=== PATIENT | male | born 1980 | race Two or more races ===

== ENCOUNTER 2021-01-21 14:57 | Emergency (ER) | payer BC ==
[2021-01-21 15:25] LABS: MUDS CUTOFF CONCENTRATIONS CUTOFF CONC BELOW:
[2021-01-21 15:32] LABS: GLUCOSE, URINE (UA) NEGATIVE (NEGATIVE); KETONES,URINE (UA) TRACE mg/dL (NEGATIVE); LEUKOCYTE ESTERASE, URINE NEGATIVE (NEGATIVE); NITRITE,URINE NEGATIVE (NEGATIVE); OCCULT BLOOD,URINE NEGATIVE (NEGATIVE); PROTEIN,URINE NEGATIVE (NEGATIVE); UROBILINOGEN,URINE 0.2 (NORMAL) E.U./dL (NORMAL)
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
[2021-01-21 15:33] LABS: BILIRUBIN,URINE NEGATIVE (NEGATIVE); CLARITY,URINE CLEAR (CLEAR); ICTOTEST,URINE NEGATIVE
[2021-01-21 15:39] LABS: AMPHETAMINE SCREEN,URINE POSITIVE (NEGATIVE); BARBITURATE SCREEN,UR NEGATIVE (NEGATIVE); BENZODIAZEPINES SCREEN, URINE POSITIVE (NEGATIVE); COCAINE SCREEN URINE NEGATIVE (NEGATIVE); METHADONE SCREEN, URINE NEGATIVE (NEGATIVE); METHAMPHETAMINES SCREEN, URINE NEGATIVE (NEGATIVE); OPIATE SCREEN, URINE NEGATIVE (NEGATIVE); OXYCODONE SCREEN, URINE NEGATIVE (NEGATIVE); PROPOXYPHENE SCREEN, URINE NEGATIVE (NEGATIVE); THC CANNABINOID SCREEN, URINE POSITIVE (NEGATIVE); TRICYCLIC ANTIDEPRESSANT,URINE NEGATIVE (NEGATIVE)
[2021-01-21 15:46] LABS: BASOPHILS % (AUTO) 0.5 %; EOSINOPHILS # (AUTO) 0.2 10^3/uL (0.0-0.7); EOSINOPHILS % (AUTO) 2.8 %; HCT - HEMATOCRIT 42.5 % (42.0-52.0); HGB - HEMOGLOBIN 14.2 g/dL (14.0-18.0); LYMPHOCYTES # (AUTO) 2.4 10^3/uL (1.5-3.5); LYMPHOCYTES % (AUTO) 41.7 %; MEAN CORPUSCULAR HEMOGLOBIN 30.3 pg (27.0-31.0); MEAN CORPUSCULAR HGB CONC 33.4 g/dL (32.0-36.0); MEAN CORPUSCULAR VOLUME 90.6 fL (80.0-94.0); MEAN PLATELET VOLUME 8.8 fL (7.4-11.4); MONOCYTES # (AUTO) 0.6 10^3/uL (0.0-1.0); MONOCYTES % (AUTO) 10.3 %; NEUTROPHILS # (AUTO) 2.6 10^3/uL (1.5-6.6); NEUTROPHILS % (AUTO) 44.4 %; PLT - PLATELET COUNT 397 10^3/uL (130-450); RED BLOOD COUNT 4.69 10^6/uL (4.70-6.10); WHITE BLOOD COUNT 5.8 x10^3/uL (4.8-10.8)
[2021-01-21 15:54] LABS: ACETAMINOPHEN < 10 ug/mL (10-30); ALBUMIN 4.4 g/dL (3.2-5.5); ALBUMIN/GLOBULIN RATIO 1.5 (1.0-2.2); ALKALINE PHOSPHATASE 52 IU/L (42-121); ALT ALANINE AMINOTRANSFERASE 22 IU/L (10-60); AST ASPARTATE AMINOTRANSFERASE 25 IU/L (10-42); BILIRUBIN,TOTAL 0.7 mg/dL (0.2-1.0); BUN - BLOOD UREA NITROGEN 15 mg/dL (6-20); CALCIUM 9.2 mg/dL (8.5-10.3); CARBON DIOXIDE - CO2 25 mmol/L (21-32); CHLORIDE 104 mmol/L (101-111); CREATININE 0.9 mg/dL (0.6-1.2); ETOH - ETHANOL < 5.0 mg/dL; GFR - MDRD 94 (>89); GLUCOSE 92 mg/dL (70-100); LIPASE 32 U/L (22-51); POTASSIUM 3.5 mmol/L (3.5-5.0); SALICYLATE < 6.0 mg/dL; SODIUM 138 mmol/L (135-145); TOTAL PROTEIN 7.4 g/dL (6.7-8.2)
--- NOTE | 2021-01-21 17:58 | TELEPSYCH PHYS NOTE ---
Telepsych Note - CHIEF COMPLAINT/HX OF PRESENT ILLNESS Chief Complaint and History of Present Illness: Name: Wes Ventura :82 Date: 01/21/21 Time:8:25pm [facility] Location of doctor:[place] Length of consult:1hr This evaluation was conducted via telepsychiatry with the assistance of onsite staff Reason for consult: rage episodes Requested by:Wanda Paniagua History of Present Illness: 40y/o male with h/o ADHD comes in with his for assessment of severe mood swings. Pt says he is easily agitated with low frustration threshold and easily goes in to a rage, breaking things. He denied current suicidal or homicidal thoughts. He denied h/o harm to self or others. He says sleep and appetite are poor but otherwise denied s/o ct. He denied perceptual disturbances. HE denied chronic use of illicit drugs or alcohol but does admit to daily marijuana. He says the episodes have gone on fro a couple years but seem to be getting worse. Collateral contacted at bedside with patient permission and said she fears he will harm himself or someone else when he goes into these rages. She does not feel he is properly diagnosed and would like further assessment in a safe environment. Sleep issues:)poor with low energy Psychiatric History/Treatment History: Past diagnoses: ADHD Hospitalizations: none Current Treatment: Adderall, xanax and Lexapro Suicide Assessment: PSS-3: 1) Over the past 2 weeks have you felt down, depressed or hopeless? yes 2) Over the past 2 weeks have you had thoughts of killing yourself? denied 3) Have you ever in your life attempted to kill yourself? denied If yes, then when? PSS-3 Secondary Screen If #2 is yes or #3 is yes within the past 6 months, then complete secondary screen: 1) Positive on PSS-3 questions 2 & 3 active SI with a past attempt?denied 2) Have you been thinking about how you might kill yourself? denied 3) Have you had some intention of acting on your thoughts? denied 4) Lifetime psychiatric hospitalization? none 5) Has drinking or substance abuse ever been a problem for you? marijuana 6) Current irritability, agitation, or aggression? yes PSS-3 Secondary Screen Scoring: Moderate (3-4) No current attempt, Plan OR intent but not both JCAHO-based Safety Assessment: Risk Factors: Stressors Recent move from [place], Work, family expectations Attempts/Self-injury: denied Impulsivity: yes, breaking things in a rage Drug/Alcohol History: rare alcohol, daily marijuana Trauma history: denied Access to firearms: yes HI/Violence/Property destruction: yes Legal: denied Family Psych History: anxiety and depression Family History of suicide: denied Protective Factors: Internal: (educated, insightful External: Social supports/ Therapeutic relationships: and family Relationship history: over a year Living situation: with 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 He had a sz at 14y/o He denied head trauma - PSYCHIATRIC HX/TREATMENT HX Psychiatric: Anxiety, ADD/ADHD - DRUG/ALCOHOL HX Substance Use and Type: Marijuana - MEDICAL HX Does the pt have a hx of MRSA?: No Neurological History: None Eyes, Ears, Nose, Throat: None Cardiovascular: None Respiratory: None Skin: None Endocrine/Autoimmune: None Gastrointestinal: None Urinary: None Musculoskeletal: Chronic back pain Blood Disorders: None - HOME MEDICATIONS Home Meds (as last confirmed): Patient History Medication Instructions Recorded Confirmed ALPRAZolam [Alprazolam] 0.5 mg ORAL BID PRN 01/21/21 01/21/21 Dextroamphetamine/Amphetamine 10 mg PO DAILY PM PRN 01/21/21 01/21/21 [Adderall 10 mg Tablet] Dextroamphetamine/Amphetamine 20 mg ORAL DAILY 01/21/21 01/21/21 [Adderall 20 mg Tablet] Escitalopram Oxalate [Lexapro] 20 mg PO DAILY 01/21/21 01/21/21 - ALLERGIES Allergies (as last confirmed): Allergies Allergy/AdvReac Type Severity Reaction Status Date / Time No Known Drug Allergies Allergy Verified 01/21/21 15:14 - PATIENT PROBLEM LIST (1) Mood disorder Impression: Pt is a 40y/o male with fairly new onset of severe mood lability, rage episodes, breaking things, scaring his . She fears he will harm himself or others when in his rages and said sometimes he does not recall what happened when in a rage. He does not endorse further s/o ct or family hx of bipolar. He is on multiple meds for ADHD and uses marijuana daily. This may be contributing to mood sx as opposed to calming him. He had a sz as a teen but denied head trauma or current headaches. He denied having any medical issues. Affective d/o run in the family as does alcohol abuse. is very concerned for his safety. Pt is willing to come in voluntarily for treatment. - TREATMENT/PHARMACOLOGICAL RECOMMENDATION Treatment - Pharmacological - Therapy Recommendations: FH: anxiety and depression run in the family. Grandparents abused alcohol. No suicides Sh: Pt and recently moved from [place], pt still going back at times for work. No children. NO h/o trauma or abuse. is supportive. 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 NO . NO legal issues. He does have guns that are locked up. MSE: Pt was well groomed with fair eye contact. He had an odd affect, slow thought process and bloodshot eyes. He displayed paucity of speech. He denied A/V hallucinations but appeared oddly distracted. insight and judgment were limited - TIME SPENT & PROVIDER LOCATION Telepsych consultation conducted via videoconferencing: Yes (Recommendations discussed with Dr Beach) List names and roles of persons who participated in consult: Pts , Wes and Dr Tenorio Telepsych Provider Location: [place] Time Telepsych consult began: 20:20 Time Telepsych consult completed: 21:15
[2021-01-21] MEDS ORDERED: LORazepam 1 MG TABLET PO STA ×2 (18:44→19:48)
[2021-01-21 21:34] LABS: CORONAVIRUS 229E-RESP PCR NOT DETECTED; CORONAVIRUS HKU1-RESP PCR NOT DETECTED; CORONAVIRUS NL63-RESP PCR NOT DETECTED; CORONAVIRUS OC43-RESP PCR NOT DETECTED
[2021-01-21 21:35] LABS: B. PARAPERTUSSIS- RESP PCR PAN NOT DETECTED; B. PERTUSSIS- RESP PCR PANEL NOT DETECTED; C. PNEUMONIAE- RESP PCR PANEL NOT DETECTED; HUMAN METAPNEUMOVIRUS NOT DETECTED; INFLUENZA A- RESP PCR PANEL NOT DETECTED; INFLUENZA B - RESP PCR PANEL NOT DETECTED; M. PNEUMONIAE- RESP PCR PANEL NOT DETECTED; PARAINFLUENZA VIRUS 1 NOT DETECTED; PARAINFLUENZA VIRUS 2 NOT DETECTED; PARAINFLUENZA VIRUS 3 NOT DETECTED; PARAINFLUENZA VIRUS 4 NOT DETECTED; RHINOVIRUS/ENTEROVIRUS NOT DETECTED; RSV- RESP PCR PANEL NOT DETECTED; SARS-CoV-2 -RESP PCR PANEL NOT DETECTED
[2021-01-22 04:41] VITALS: BP 111/53
== END 2021-01-22 13:34 ==
LOC: ED 14:57
DX: F39 Unspecified mood [affective] disorder (principal); F90.9 Attention-deficit hyperactivity disorder, unspecified type; F41.9 Anxiety disorder, unspecified; Z20.822 Contact with and (suspected) exposure to COVID-19
CPT/HCPCS: 0202U; 36415; 80053; 80306; 80307; 80320; 80329; 81003; 83690; 84443; 85025; 99284; 99285; J8499; Q3014; 81001; 87086